=== PATIENT | female | born 1990 | race American Indian/Alaskan Native ===

== ENCOUNTER 2016-10-09 23:23 | Emergency (ER) | payer OTHER ==
--- NOTE | 2016-10-10 01:06 | C.PDOC ---
History Of Present Illness 26 year old female with a history of asthma, presents to the ED with complaints of a productive cough with yellow sputum for the past week. Patient states she has chest pain with coughing and deep inspiration. She also notes having associated rhinorrhea and nasal congestion and denies fever, chills, myalgia, SOB, or any other complaints at this time. Time Seen by Provider: 10/10/16 00:59 Chief Complaint (Nursing): Cough, Cold, Congestion History Per: Patient History/Exam Limitations: no limitations Onset/Duration Of Symptoms: Days Current Symptoms Are (Timing): Still Present Associated Symptoms: Cough, Sputum. denies: Fever, Sore Throat, Myalgias Ear Symptoms: Left: None Severity: Mild Past Medical History Reviewed: Historical Data, Nursing Documentation, Vital Signs Vital Signs: Last Vital Signs Temp 97.8 F 10/10/16 01:22 Pulse 87 10/10/16 01:22 Resp 20 10/10/16 01:22 BP 105/67 10/10/16 01:22 Pulse Ox 99 10/10/16 01:22 - Medical History PMH: Asthma Family History: States: Unknown Family Hx - Social History Hx Tobacco Use: Yes Hx Alcohol Use: Yes Hx Substance Use: No - Immunization History Hx Tetanus Toxoid Vaccination: No Hx Influenza Vaccination: No Hx Pneumococcal Vaccination: No Review Of Systems Except As Marked, All Systems Reviewed And Found Negative. Constitutional: Negative for: Fever, Chills Respiratory: Positive for: Cough, Sputum. Negative for: Shortness of Breath Musculoskeletal: Positive for: Other (+Ches pain with cough) Physical Exam - Physical Exam Appears: Non-toxic, No Acute Distress Skin: Warm, Dry Head: Atraumatic, Normacephalic Eye(s): bilateral: Normal Inspection Oral Mucosa: Moist Chest: Symmetrical Cardiovascular: Rhythm Regular Respiratory: Normal Breath Sounds, No Accessory Muscle Use, No Rales, No Rhonchi , No Wheezing, Other (+Cough noted with deep inspiration) Extremity: Normal ROM Neurological/Psych: Oriented x3, Normal Speech, Normal Cognition ED Course And Treatment O2 Sat by Pulse Oximetry: 97 (Room air) Pulse Ox Interpretation: Normal Progress Note: Rx given and patient advised to follow up with her PMD in 2-3 days. Disposition Counseled Patient/Family Regarding: Diagnosis, Need For Followup, Rx Given - Disposition Referrals: [facility] at [facility] [Outside] Non [facility] Provider, [Primary Care Provider] - Disposition: HOME/ ROUTINE Disposition Time: 01:11 Condition: GOOD Prescriptions: Guaifenesin [Mucinex] 600 mg PO BID #10 tab.er.12h Albuterol HFA [Ventolin HFA 90 mcg/actuation (8 g)] 2 puff IH TID #1 inhaler Instructions: Upper Respiratory Infection (ED) Forms: General Discharge Instructions, Work Excuse - Clinical Impression Clinical Impression: Upper respiratory infection - PA / PROGRAM THERAPIST / Resident Statement MD/DO has reviewed & agrees with the documentation as recorded. - Scribe Statement The provider has reviewed the documentation as recorded by the Scribe Celine Norton. All medical record entries made by the Scribe were at my direction and personally dictated by me. I have reviewed the chart and agree that the record accurately reflects my personal performance of the history, physical exam, medical decision making, and the department course for this patient. I have also personally directed, reviewed, and agree with the discharge instructions and disposition.
[2016-10-10 01:23] VITALS: BP 105/67; PULSE 87; RESP 20; TEMP 97.8
[2016-10-10 01:51] VITALS: O2SAT 97
== END 2016-10-10 01:23 | disposition home or self-care (01) ==
LOC: SUPCPDRO 23:23 → C.ER 23:23
DX: J06.9 Acute upper respiratory infection, unspecified (principal); Z72.0 Tobacco use

== ENCOUNTER 2017-01-21 22:27 | Emergency (ER) | payer OTHER ==
[2017-01-21 22:50] VITALS: BP 112/74; PULSE 93; RESP 20; TEMP 98.5; O2SAT 100
--- NOTE | 2017-01-22 00:12 | C.PDOC ---
History Of Present Illness 26 year old female presents to the ED with complains of generalized bodyaches, sore throat, and slight cough for two days. Patient notes difficulty swallowing due to throat pain, Pt reports a history of asthma. She states she took Advil and NyQuil at home with no relief. Patient denies nausea, vomiting, or fever. Time Seen by Provider: 01/21/17 23:09 Chief Complaint (Nursing): Flu-like Symptoms History Per: Patient History/Exam Limitations: no limitations Onset/Duration Of Symptoms: Days (2 days ) Current Symptoms Are (Timing): Still Present Location Of Pain: Throat Sick Contacts (Context): None Associated Symptoms: Sore Throat, Cough. denies: Fever, Chills, Nausea, Vomiting, Diarrhea Recent travel outside of the [place]: No Past Medical History Reviewed: Historical Data, Nursing Documentation, Vital Signs Vital Signs: Last Vital Signs Temp 98.5 F 01/21/17 22:48 Pulse 93 H 01/21/17 22:48 Resp 20 01/21/17 22:48 BP 112/74 01/21/17 22:48 Pulse Ox 100 01/22/17 02:42 - Medical History PMH: Asthma Family History: States: Unknown Family Hx - Social History Hx Tobacco Use: Yes Hx Alcohol Use: Yes Hx Substance Use: No - Immunization History Hx Tetanus Toxoid Vaccination: No Hx Influenza Vaccination: No Hx Pneumococcal Vaccination: No Review Of Systems Constitutional: Positive for: Other (generalized bodyaches ). Negative for: Fever, Chills ENT: Positive for: Throat Pain (causing difficulty swallowing ) Cardiovascular: Negative for: Chest Pain, Palpitations Respiratory: Positive for: Cough. Negative for: Shortness of Breath Gastrointestinal: Negative for: Nausea, Vomiting, Abdominal Pain, Diarrhea Physical Exam - Physical Exam Appears: Non-toxic, No Acute Distress Skin: Warm, Dry Head: Atraumatic Eye(s): bilateral: Normal Inspection, PERRL, EOMI Oral Mucosa: Moist Throat: Erythema (b/l), Exudate (left), No Drooling, No Mass, No Other (abscess) Neck: Normal, Supple, No Other (swelling) Chest: Symmetrical Cardiovascular: Rhythm Regular Respiratory: Normal Breath Sounds, No Rhonchi, No Wheezing Extremity: Normal ROM Neurological/Psych: Oriented x3 ED Course And Treatment O2 Sat by Pulse Oximetry: 100 (room air ) Progress Note: Patient was given Motrin while in the ED and noted improvement. Reassessment Condition: Improved Disposition Counseled Patient/Family Regarding: Diagnosis, Need For Followup, Rx Given - Disposition Disposition: HOME/ ROUTINE Disposition Time: 00:10 Condition: STABLE Additional Instructions: Please follow up with PMD Increase PO fluids' Drink fluids Return to ER if worse Prescriptions: Amoxicillin 500 mg PO TID #21 tab Cetirizine HCl [Zyrtec] 10 mg PO DAILY #20 capsule Ibuprofen [Motrin] 600 mg PO Q6H #30 tab Instructions: Pharyngitis (ED), Viral Syndrome (ED) Forms: Work Excuse - Clinical Impression Clinical Impression: Pharyngitis, Viral illness - Scribe Statement The provider has reviewed the documentation as recorded by the Scribradha Mcdonald All medical record entries made by the Wenibradha were at my direction and personally dictated by me. I have reviewed the chart and agree that the record accurately reflects my personal performance of the history, physical exam, medical decision making, and the department course for this patient. I have also personally directed, reviewed, and agree with the discharge instructions and disposition.
== END 2017-01-22 00:18 | disposition home or self-care (01) ==
LOC: C.ER 22:27
DX: B34.9 Viral infection, unspecified (principal); J02.9 Acute pharyngitis, unspecified; Z72.0 Tobacco use

== ENCOUNTER 2018-02-04 04:31 | Emergency (ER) | payer OTHER ==
[2018-02-04 04:52] VITALS: TEMP 98.1
--- NOTE | 2018-02-04 05:04 | C.PDOC ---
History Of Present Illness Pt presents to ER requesting a test. Pt states she's unsure of her LMP but has definitely missed one in December. Pt c/o of Rt suprapubic pressure intermittently x 1 week. Denies fever, nausea, vomiting, dysuria, vaginal bleeding, or discharge. Pt denies pain now but would like a test. Time Seen by Provider: 02/04/18 04:53 Chief Complaint (Nursing): Abdominal Pain History Per: Patient History/Exam Limitations: no limitations Severity: Mild Location Of Pain/Discomfort: Suprapubic (right) Radiation Of Pain To:: None Quality Of Discomfort: Cramping Associated Symptoms: denies: Fever, Nausea, Vomiting, Loss Of Appetite, Back Pain, Constipation, Urinary Symptoms Last Bowel Movement: Today Past Medical History Vital Signs: Last Vital Signs Temp 98.1 F 02/04/18 04:48 Pulse 69 02/04/18 04:48 Resp 12 02/04/18 04:48 BP Pulse Ox 100 02/04/18 06:01 - Medical History PMH: Asthma Denies: Chronic Kidney Disease Family History: States: Unknown Family Hx - Social History Hx Tobacco Use: Yes Hx Alcohol Use: Yes Hx Substance Use: No - Immunization History Hx Tetanus Toxoid Vaccination: No Hx Influenza Vaccination: No Hx Pneumococcal Vaccination: No Review Of Systems Constitutional: Negative for: Fever, Weakness Gastrointestinal: Positive for: Abdominal Pain. Negative for: Nausea, Vomiting , Diarrhea, Constipation Genitourinary: Negative for: Dysuria, Frequency, Hematuria, Vaginal Discharge, Vaginal Bleeding, Pelvic Pain Physical Exam - Physical Exam Appears: Well, Non-toxic Skin: Normal Color Eye(s): bilateral: Normal Inspection Oral Mucosa: Moist Cardiovascular: Rhythm Regular Respiratory: Normal Breath Sounds Gastrointestinal/Abdominal: Normal Exam, Bowel Sounds, Soft, No Tenderness, No Organomegaly, No Distention Back: No CVA Tenderness Pelvic: Normal External Exam, Normal Speculum Exam, Normal Bimanual Exam, Vaginal Bleeding (minimal ), No Vaginal Discharge, No Cervical Motion Tenderness , No Adnexal Tenderness Neurological/Psych: Oriented x3 ED Course And Treatment - Laboratory Results Urine POC: Negative O2 Sat by Pulse Oximetry: 100 (RA) Pulse Ox Interpretation: Normal Progress Note: Ordered UA. Upon re-evaluation, patient states she is feeling much better and is stable for discharge. Counseling has been provided and follow up instructions with NURSING EDUCATOR has been provided and patient is in agreement. Return if symptoms persist or acutely worsen. Disposition Counseled Patient/Family Regarding: Diagnosis, Need For Followup, Rx Given - Disposition Referrals: [facility] at [facility] [Outside] Disposition: HOME/ ROUTINE Disposition Time: 06:00 Condition: STABLE Additional Instructions: Please follow up in clinic Advised control method Return to ER if worse Instructions: Acute Pelvic Pain (DC) Forms: [facility] ([place]) - Clinical Impression Clinical Impression: Suprapubic pain
[2018-02-04 05:45] LABS: SQUAMOUS EPITHIAL 7 /hpf (0-5); URINE BILIRUBIN NEGATIVE (NEGATIVE); URINE BLOOD 2+ (NEGATIVE); URINE CLARITY Hazy (Clear); URINE COLOR Yellow (YELLOW); URINE GLUCOSE (UA) NORMAL (Normal); URINE LEUKOCYTE ESTERASE TRACE Leu/uL (Negative); URINE PROTEIN NEGATIVE (NEGATIVE); URINE UROBILINOGEN NORMAL mg/dL (0.2-1.0)
[2018-02-04 06:13] VITALS: BP 114/56; PULSE 78; RESP 14; O2SAT 98
== END 2018-02-04 06:11 | disposition home or self-care (01) ==
LOC: C.ER 04:31
DX: R10.9 Unspecified abdominal pain (principal); Z72.0 Tobacco use

== ENCOUNTER 2018-05-28 05:10 | Emergency (ER) | payer OTHER ==
[2018-05-28 05:39] LABS: HCG,QUALITATIVE URINE NEGATIVE (NEGATIVE)
[2018-05-28 05:41] LABS: SQUAMOUS EPITHIAL 2 /hpf (0-5); URINE BACTERIA FEW (<OCC); URINE BILIRUBIN NEGATIVE (NEGATIVE); URINE BLOOD 2+ (NEGATIVE); URINE CLARITY Hazy (Clear); URINE COLOR Yellow (YELLOW); URINE GLUCOSE (UA) NORMAL (Normal); URINE LEUKOCYTE ESTERASE 3+ Leu/uL (Negative); URINE PROTEIN NEGATIVE (NEGATIVE)
--- NOTE | 2018-05-28 06:05 | C.PDOC ---
History Of Present Illness 27 year old female presents to the ED c/o cough associated with runny nose, sore throat, body aches for the past 3 days. Patient is also c/o dysuria associated with frequency for the past week. Patient denies fever. chills, nausea, vomit, diarrhea, back pain, rash. Chief Complaint (Nursing): Cough, Cold, Congestion History Per: Patient History/Exam Limitations: no limitations Onset/Duration Of Symptoms: Days (3) Current Symptoms Are (Timing): Still Present Recent travel outside of the [place]: No Additional History Per: Patient Past Medical History Reviewed: Historical Data, Nursing Documentation, Vital Signs Vital Signs: Last Vital Signs Temp 98.6 F 05/28/18 05:20 Pulse 100 H 05/28/18 05:20 Resp 18 05/28/18 05:20 BP 126/75 05/28/18 05:20 Pulse Ox 100 05/28/18 05:20 - Medical History PMH: Asthma Denies: Chronic Kidney Disease Surgical History: No Surg Hx Family History: States: Unknown Family Hx - Social History Hx Tobacco Use: Yes Hx Alcohol Use: Yes Hx Substance Use: No - Immunization History Hx Tetanus Toxoid Vaccination: No Hx Influenza Vaccination: No Hx Pneumococcal Vaccination: No Review Of Systems Constitutional: Negative for: Fever, Chills ENT: Positive for: Nose Discharge, Throat Pain. Negative for: Nose Congestion Respiratory: Positive for: Cough. Negative for: Shortness of Breath Gastrointestinal: Negative for: Nausea, Vomiting Genitourinary: Positive for: Dysuria, Incontinence Musculoskeletal: Negative for: Back Pain Skin: Negative for: Rash Physical Exam - Physical Exam Appears: Non-toxic, No Acute Distress Skin: Normal Color, Warm, Dry Head: Atraumatic, Normacephalic Eye(s): bilateral: Normal Inspection Ear(s): Bilateral: Normal Oral Mucosa: Moist Throat: Normal, No Erythema, No Exudate Neck: Normal ROM, Supple Chest: Symmetrical Cardiovascular: Rhythm Regular Respiratory: Normal Breath Sounds, No Rales, No Rhonchi, No Wheezing Gastrointestinal/Abdominal: Soft, Tenderness (mild suprapubic), No Guarding, No Rebound Extremity: Normal ROM, No Tenderness, No Swelling Neurological/Psych: Oriented x3, Normal Speech, Normal Cognition Gait: Steady ED Course And Treatment O2 Sat by Pulse Oximetry: 100 (ON RA) Pulse Ox Interpretation: Normal Medical Decision Making Medical Decision Making: Plan: * Cipro 500 mg PO * Claritin 10 mg PO * Pyridium 200 mg PO * UA Disposition - Disposition Referrals: [facility] at [facility] [Outside] Disposition: HOME/ ROUTINE Disposition Time: 06:22 Condition: STABLE Additional Instructions: Follow up with the medical doctor within 1-2 days. Return if worsened. Prescriptions: Ciprofloxacin [Cipro] 1 tab PO BID #14 tab Loratadine [Claritin] 10 mg PO DAILY #10 tab Phenazopyridine HCl [Pyridium] 200 mg PO TID #7 tablet predniSONE [Prednisone] 20 mg PO BID #10 tab Instructions: Upper Respiratory Infection (ED) Forms: [employer] ([place]), Work Excuse - Clinical Impression Clinical Impression: Upper respiratory infection, UTI (urinary tract infection) - PA / [employer] SAWYER / Resident Statement MD/DO has reviewed & agrees with the documentation as recorded. - Scribe Statement The provider has reviewed the documentation as recorded by the Scribe Willy New All medical record entries made by the Scribe were at my direction and personally dictated by me. I have reviewed the chart and agree that the record accurately reflects my personal performance of the history, physical exam, medical decision making, and the department course for this patient. I have also personally directed, reviewed, and agree with the discharge instructions and disposition.
[2018-05-28 06:40] VITALS: BP 121/74; PULSE 78; RESP 16; TEMP 99; O2SAT 99
== END 2018-05-28 06:53 | disposition home or self-care (01) ==
LOC: C.ER 05:10
DX: J06.9 Acute upper respiratory infection, unspecified (principal); N39.0 Urinary tract infection, site not specified